=== PATIENT | male | born 1995 ===

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

== ENCOUNTER 2017-05-03 21:56 | Emergency (ER) | payer MEDICAID ==
[2017-05-03 22:11] VITALS: BP 132/80; PULSE 79; RESP 20; TEMP 98.2; O2SAT 97
--- NOTE | 2017-05-03 22:20 | ED PDOC ---
HPI: Head Injury Time Seen by Provider: 05/03/17 22:20 Chief Complaint (Nursing): Trauma Chief Complaint (Provider): head/neck pain History Per: Patient Additional Complaint(s): 21-year-old male resents with headache and neck pain status post jumping on a trampoline and landing on his neck. Patient did not sustain loss of consciousness. Injury occurred at 5:30 PM. No meds taken for pain relief prior to arrival. Patient denies any vision changes or dizziness, he rates headache as a 4 out of 10 and rates neck pain as a 7/10. He has slight nausea but denies any vomiting. Patient has been able to eat and drink since time of injury PMD: Patricia Onofre MD Past Medical History Reviewed: Historical Data, Nursing Documentation, Vital Signs Vital Signs: Last Vital Signs Temp 98.2 F 05/03/17 22:08 Pulse 79 05/03/17 22:08 Resp 20 05/03/17 22:08 BP 132/80 05/03/17 22:08 Pulse Ox 97 05/03/17 22:08 - Medical History PMH: No Chronic Diseases - Surgical History Surgical History: No Surg Hx - Family History Family History: States: No Known Family Hx - Living Arrangements Living Arrangements: With Family - Social History Current smoker - smoking cessation education provided: No Alcohol: None Drugs: Denies - Home Medications Home Medications: Ambulatory Orders Medication Instructions Recorded Amoxicillin/Clavulanate [Augmentin 1 tab PO BID 10 Days tab 11/27/16 875 MG-125 MG] Ondansetron [Zofran Odt] 4 mg PO TID PRN #12 odt 11/27/16 Acetaminophen [Tylenol 325mg tab] 650 mg PO Q4 PRN #1 bottle 05/03/17 Cyclobenzaprine [Cyclobenzaprine 10 mg PO TID PRN #15 tab 05/03/17 HCl] - Allergies Allergies/Adverse Reactions: Allergies Allergy/AdvReac Type Severity Reaction Status Date / Time No Known Allergies Allergy Verified 10/05/14 08:04 Review of Systems ROS Statement: Except As Marked, All Systems Reviewed And Found Negative Musculoskeletal: Positive for: Neck Pain Neurological: Positive for: Other (head injury with no LOC) Physical Exam - Reviewed Nursing Documentation Reviewed: Yes Vital Signs Reviewed: Yes - Physical Exam Appears: Positive for: Well, Non-toxic, No Acute Distress Skin: Negative for: Rash Eye Exam: Positive for: Normal appearance Neck: Positive for: Pain On Movement Of Neck (tenderness to bilateral paraspinal regions along cervical spine, no step off or palpable bony deformity) Cardiovascular/Chest: Positive for: Regular Rate, Rhythm Respiratory: Positive for: Normal Breath Sounds Extremity: Positive for: Normal ROM Neurologic/Psych: Positive for: Alert, Oriented - ECG O2 Sat by Pulse Oximetry: 97 Pulse Ox Interpretation: Normal - Other Rad C spine x-ray X-Ray: Interpreted by Me, Viewed By Me X-Ray Interpretation: no fx, no dis Medical Decision Making Medical Decision Makin21 year old with head and neck injury Patient did not sustain LOC, denies any dizziness or vision changes. Plan: C-spine x-ray PO tylenol Patient is aware of x-ray results. Patient states Tylenol did help with pain. Rx for tylenol and flexeril given. Advised follow-up with primary doctor on Friday. Disposition - Clinical Impression Clinical Impression: Cervical sprain, Minor head injury without loss of consciousness - Patient ED Disposition Is Patient to be Admitted: No Counseled Patient/Family Regarding: Studies Performed, Diagnosis, Need For Followup, Rx Given - Disposition Referrals: Patricia Tate MD [Non-Staff] - Disposition: Routine/Home Disposition Time: 22:37 Condition: STABLE Additional Instructions: Take rx meds as directed. Rest and avoid heavy lifting. Follow up with primary care doctor in 1-2 days. Prescriptions: Acetaminophen [Tylenol 325mg tab] 650 mg PO Q4 PRN #1 bottle PRN Reason: Fever >100.4 F Cyclobenzaprine [Cyclobenzaprine HCl] 10 mg PO TID PRN #15 tab PRN Reason: Muscle Pain Instructions: Cervical Strain (DC), Head Injury (ED) Forms: [employer] ([place]ien)
--- NOTE | 2017-05-04 09:18 | RAD ---
PROCEDURE: Cervical Spine Radiographs. HISTORY: Pain. COMPARISON: None. FINDINGS: BONES: Alignment maintained. No fracture. Dens Intact. DISC SPACES: Normal. SOFT TISSUES: Normal. No prevertebral soft tissue swelling. OTHER FINDINGS: None. IMPRESSION: Normal cervical spine radiographs
== END 2017-05-03 22:58 | disposition home or self-care (01) ==
LOC: H.ER 21:56
DX: S09.90XA Unspecified injury of head, initial encounter (principal); S13.4XXA Sprain of ligaments of cervical spine, initial encounter; Y93.44 Activity, trampolining; Y92.89 Other specified places as the place of occurrence of the external cause

== ENCOUNTER 2017-07-17 18:52 | Emergency (ER) | payer MEDICAID ==
[2017-07-17 19:25] VITALS: BP 132/79; PULSE 62; RESP 16; TEMP 98.6; O2SAT 100
--- NOTE | 2017-07-17 20:06 | ED PDOC ---
HPI: Headache Time Seen by Provider: 07/17/17 19:40 Chief Complaint (Nursing): Abdominal Pain History Per: Patient History/Exam Limitations: no limitations Onset/Duration Of Symptoms: Days Current Symptoms Are (Timing): Gone Now Associated Symptoms: Photophobia, Nausea, Vomiting Additional Complaint(s): No PMHx p/w GONCALVES since Friday, resolving. States that on Friday he woke up with a aching occipital headache and photophobia assoc. w/ nausea and few episodes of vomiting, states that headache is nt maximal at onset, gradual onset, non- thunderclap, states that Friday he also had nausea and vomiting with mild GONCALVES. States that today he feels nauseated but only mild headache, was scared of vomiting again so he came to the ER for further eval. No neck pain/stiffness, no fevers. Past Medical History Reviewed: Historical Data, Nursing Documentation Vital Signs: Last Vital Signs Temp 98.6 F 07/17/17 19:24 Pulse 62 07/17/17 19:24 Resp 16 07/17/17 19:24 BP 132/79 07/17/17 19:24 Pulse Ox 100 07/17/17 19:24 - Medical History PMH: No Chronic Diseases - Family History Family History: States: Unknown Family Hx - Immunization History Hx Tetanus Toxoid Vaccination: No Hx Influenza Vaccination: No Hx Pneumococcal Vaccination: No - Home Medications Home Medications: Ambulatory Orders Medication Instructions Recorded Amoxicillin/Clavulanate [Augmentin 1 tab PO BID 10 Days tab 11/27/16 875 MG-125 MG] Ondansetron [Zofran Odt] 4 mg PO TID PRN #12 odt 11/27/16 Acetaminophen [Tylenol 325mg tab] 650 mg PO Q4 PRN #1 bottle 05/03/17 Cyclobenzaprine [Cyclobenzaprine 10 mg PO TID PRN #15 tab 05/03/17 HCl] Aspirin/Acetaminophen/Caffeine 1 each PO Q12 PRN #30 tablet 07/17/17 [Excedrin Migraine Geltab] - Allergies Allergies/Adverse Reactions: Allergies Allergy/AdvReac Type Severity Reaction Status Date / Time No Known Allergies Allergy Verified 10/05/14 08:04 Review of Systems ROS Statement: Except As Marked, All Systems Reviewed And Found Negative Gastrointestinal: Positive for: Nausea, Vomiting Neurological: Positive for: Headache Physical Exam - Reviewed Nursing Documentation Reviewed: Yes Vital Signs Reviewed: Yes - Physical Exam Appears: Positive for: Well, Non-toxic, No Acute Distress Head Exam: Positive for: ATRAUMATIC, NORMAL INSPECTION, NORMOCEPHALIC Skin: Positive for: Normal Color, Warm, DRY Eye Exam: Positive for: EOMI, Normal appearance, PERRL ENT: Positive for: Normal ENT Inspection Neck: Positive for: Normal, Painless ROM Cardiovascular/Chest: Positive for: Regular Rate, Rhythm Respiratory: Positive for: CNT, Normal Breath Sounds Gastrointestinal/Abdominal: Positive for: Normal Exam, Soft Back: Positive for: Normal Inspection Extremity: Positive for: Normal ROM Neurologic/Psych: Positive for: 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 Negative for: Motor/Sensory Deficits, Cerebellar Tests, Gait, Aphasia, Facial Droop - ECG O2 Sat by Pulse Oximetry: 100 Pulse Ox Interpretation: Normal Medical Decision Making Medical Decision Making: A/P: No PMHx p/w resolving GONCALVES and nausea -Patient is well appearing, tolerating PO, normal vitals -Explained his symptoms are likely migraine related -Advised patient to followup with PMD tomorrow and neurology as warranted -Patient stable for outpatient followup, no need for imaging/intervention at this time -Will give zofran/NSAID as patient has not taken any medication for condition -Return precautions given Disposition - Clinical Impression Clinical Impression: Migraine - Patient ED Disposition Is Patient to be Admitted: No - Disposition Referrals: Provider CASTILLO, [Primary Care Provider] - Disposition: Routine/Home Disposition Time: 20:08 Condition: GOOD Prescriptions: Aspirin/Acetaminophen/Caffeine [Excedrin Migraine Geltab] 1 each PO Q12 PRN #30 tablet PRN Reason: Headache Instructions: Migraine Headaches in Adults
[2017-07-17] MEDS ORDERED: Naproxen 500 MG TAB PO STA (20:23)
== END 2017-07-17 20:35 | disposition home or self-care (01) ==
LOC: H.ER 18:52 → SUPCPDRO 18:52 → H.ER 20:35
DX: G43.909 Migraine, unspecified, not intractable, without status migrainosus (principal)

== ENCOUNTER 2017-08-29 09:33 | Emergency (ER) | payer MEDICAID ==
[2017-08-29 09:46] VITALS: TEMP 98.4; O2SAT 99
[2017-08-29 09:47] VITALS: BMI 19.8
--- NOTE | 2017-08-29 10:19 | ED PDOC ---
HPI: CCC, URI, Sore Throat Time Seen by Provider: 08/29/17 10:03 Chief Complaint (Nursing): ENT Problem Chief Complaint (Provider): difficulty swallowing History Per: Patient Have you had recent travel within the past 21 days to any of the following countries: [place], [place], [place] or [place]?: No Onset/Duration Of Symptoms: Days (eight), Waxing/Waning Current Symptoms Are (Timing): Still Present Associated Symptoms: denies: Fever, Chills, Sore Throat, Cough, Sputum, Neck Pain, Nasal Congestion, Nausea, Vomiting, Diarrhea Severity: Mild Additional Complaint(s): Pt presents to the ED with symptoms over eight days of an "odd" feeling when swallowing. Pt has seen his PMD for these symptoms and the PMD prescribed sulcrafate, omeprazole and referral to a GI specialist. Pt has a confirmed appointment with a GI specialist on , September 04. Pt is in no distress, presents with no nausea, vomiting or diarrhea, fever, myalgia or other difficulty Past Medical History Reviewed: Historical Data, Nursing Documentation, Vital Signs Vital Signs: Last Vital Signs Temp 98.4 F 08/29/17 09:46 Pulse 85 08/29/17 09:46 Resp 16 08/29/17 09:46 BP 116/75 08/29/17 09:46 Pulse Ox 99 08/29/17 10:54 - Family History Family History: States: Unknown Family Hx - Immunization History Hx Tetanus Toxoid Vaccination: No Hx Influenza Vaccination: No Hx Pneumococcal Vaccination: No - Home Medications Home Medications: Ambulatory Orders Medication Instructions Recorded Amoxicillin/Clavulanate [Augmentin 1 tab PO BID 10 Days tab 11/27/16 875 MG-125 MG] Ondansetron [Zofran Odt] 4 mg PO TID PRN #12 odt 11/27/16 Acetaminophen [Tylenol 325mg tab] 650 mg PO Q4 PRN #1 bottle 05/03/17 Cyclobenzaprine [Cyclobenzaprine 10 mg PO TID PRN #15 tab 05/03/17 HCl] Aspirin/Acetaminophen/Caffeine 1 each PO Q12 PRN #30 tablet 07/17/17 [Excedrin Migraine Geltab] Ondansetron [Zofran] 4 mg PO Q8H #12 tab 04/12/18 Famotidine [Pepcid] 20 mg PO BID #28 tab 08/29/17 - Allergies Allergies/Adverse Reactions: Allergies Allergy/AdvReac Type Severity Reaction Status Date / Time No Known Allergies Allergy Verified 08/29/17 10:04 Review of Systems ROS Statement: Except As Marked, All Systems Reviewed And Found Negative Constitutional: Negative for: Fever, Chills, Sweats, Weakness ENT: Negative for: Ear Pain, Nose Pain, Mouth Pain, Mouth Swelling, Throat Pain , Throat Swelling Gastrointestinal: Negative for: Nausea, Vomiting, Abdominal Pain, Diarrhea, Constipation Skin: Negative for: Rash Neurological: Negative for: Weakness, Change in Speech Physical Exam - Reviewed Nursing Documentation Reviewed: Yes Vital Signs Reviewed: Yes - Physical Exam Appears: Positive for: Well, Non-toxic, No Acute Distress. Negative for: Uncomfortable Head Exam: Positive for: ATRAUMATIC, NORMAL INSPECTION, NORMOCEPHALIC Skin: Positive for: Normal Color, Warm, Dry ENT: Positive for: Normal ENT Inspection, Pharynx Is (non-erythematous with mild clear drainage at the posterior renate-pharynx; there is no tonsillar exudate or uvular edema; ). Negative for: Nasal Congestion, Pharyngeal Erythema, Tonsillar Exudate, Tonsillar Swelling Neck: Positive for: Normal, Painless ROM, Supple. Negative for: Decreased ROM Cardiovascular/Chest: Positive for: Regular Rate, Rhythm, Chest Non Tender. Negative for: Edema, Gallop, Bradycardia, Tachycardia, Friction Rub Respiratory: Positive for: Normal Breath Sounds. Negative for: Decreased Breath Sounds, Accessory Muscle Use, Crackles, Rales, Rhonchi, Stridor, Wheezing , Respiratory Distress Pulses-Carotid (L): 2+ Pulses-Carotid (R): 2+ Pulses-Radial (L): 2+ Pulses-Radial (R): 2+ Gastrointestinal/Abdominal: Positive for: Normal Exam, Bowel Sounds (active in all four quadrants; ), Soft. Negative for: Tenderness, Organomegaly, Distended , Guarding, Rebound, Asicites Lymphatic: Positive for: Normal Exam. Negative for: Adenopathy - ECG O2 Sat by Pulse Oximetry: 99 Medical Decision Making Medical Decision Making: pt will be seen by GI specialist on 09/04 in a confirmed appointment ED tx pepcid PO and PO challenge pt stable for discharge and outpatient follow-up/tx as scheduled return to ED precautions/instructions provided Disposition - Clinical Impression Clinical Impression: Reflux gastritis - Patient ED Disposition Is Patient to be Admitted: No Doctor Will See Patient In The: Office Counseled Patient/Family Regarding: Diagnosis, Need For Followup, Rx Given - Disposition Disposition: Routine/Home Disposition Time: 10:40 Condition: GOOD Additional Instructions: Pt will follow up with PMD as necessary Pt will continue medications as prescribed Pt will follow up with GI Specialist as scheduled Prescriptions: Famotidine [Pepcid] 20 mg PO BID #28 tab Instructions: Gastritis (DC)
[2017-08-29 11:30] VITALS: BP 118/70; PULSE 84; RESP 18
== END 2017-08-29 11:31 | disposition home or self-care (01) ==
LOC: H.ER 09:33
DX: K29.60 Other gastritis without bleeding (principal); R13.10 Dysphagia, unspecified

== ENCOUNTER 2018-01-27 09:27 | Emergency (ER) | payer MEDICAID ==
[2018-01-27 09:27] VITALS: BMI 19.8
[2018-01-27 09:31] VITALS: RESP 18; TEMP 98.6; O2SAT 99
[2018-01-27] MEDS ORDERED: Sodium Chloride 0.9% 1,000 ML IV STA (10:00)
--- NOTE | 2018-01-27 10:05 | ED PDOC ---
HPI: Abdomen Time Seen by Provider: 01/27/18 09:53 Chief Complaint (Nursing): Abdominal Pain Chief Complaint (Provider): Abdominal Pain History Per: Patient History/Exam Limitations: no limitations Onset/Duration Of Symptoms: Days (x2) Location Of Pain/Discomfort: LUQ, Other (Left flank) Associated Symptoms: Nausea. denies: Fever, Vomiting, Diarrhea, Urinary Symptoms Additional Complaint(s): 22 years old male presents to ER for evaluation of left flank pain associated with nausea onset 2 days. Patient denies vomiting, fever, diarrhea, bloody stools or any urinary symptoms. PMD: non provided Past Medical History Reviewed: Historical Data, Nursing Documentation, Vital Signs Vital Signs: Last Vital Signs Temp 98.6 F 01/27/18 09:31 Pulse 60 01/27/18 09:31 Resp 18 01/27/18 09:31 BP 106/69 01/27/18 09:31 Pulse Ox 99 01/27/18 09:31 - Medical History PMH: No Chronic Diseases - Surgical History Surgical History: No Surg Hx - Family History Family History: States: Unknown Family Hx - Social History Current smoker - smoking cessation education provided: No Alcohol: None Drugs: Cannabis (Marijuana) - Immunization History Hx Tetanus Toxoid Vaccination: No Hx Influenza Vaccination: No Hx Pneumococcal Vaccination: No - Home Medications Home Medications: Ambulatory Orders Medication Instructions Recorded Amoxicillin/Clavulanate [Augmentin 1 tab PO BID 10 Days tab 11/27/16 875 MG-125 MG] Ondansetron [Zofran Odt] 4 mg PO TID PRN #12 odt 11/27/16 Acetaminophen [Tylenol 325mg tab] 650 mg PO Q4 PRN #1 bottle 05/03/17 Cyclobenzaprine [Cyclobenzaprine 10 mg PO TID PRN #15 tab 05/03/17 HCl] Aspirin/Acetaminophen/Caffeine 1 each PO Q12 PRN #30 tablet 07/17/17 [Excedrin Migraine Geltab] Ondansetron [Zofran] 4 mg PO Q8H #12 tab 07/17/17 Famotidine [Pepcid] 20 mg PO BID #28 tab 08/29/17 Famotidine [Pepcid] 20 mg PO Q12 #20 tab 01/27/18 - Allergies Allergies/Adverse Reactions: Allergies Allergy/AdvReac Type Severity Reaction Status Date / Time No Known Allergies Allergy Verified 01/27/18 09:51 Review of Systems ROS Statement: Except As Marked, All Systems Reviewed And Found Negative Constitutional: Negative for: Fever Gastrointestinal: Positive for: Nausea. Negative for: Vomiting, Diarrhea Genitourinary Male: Negative for: Dysuria, Hematuria Physical Exam - Reviewed Nursing Documentation Reviewed: Yes Vital Signs Reviewed: Yes - Physical Exam Appears: Positive for: Non-toxic, No Acute Distress Head Exam: Positive for: ATRAUMATIC, NORMOCEPHALIC Skin: Positive for: Normal Color, Warm, Dry Gastrointestinal/Abdominal: Positive for: Soft, Tenderness (LUQ) Back: Positive for: Other (Left flank tenderness). Negative for: L CVA Tenderness, R CVA Tenderness Neurologic/Psych: Positive for: Alert, Oriented (x3) - Laboratory Results Result Diagrams: 01/27/18 10:42 01/27/18 10:42 - ECG O2 Sat by Pulse Oximetry: 99 (RA) Pulse Ox Interpretation: Normal Medical Decision Making Medical Decision Making: Time: 958 Initial Plan: --CMP --Urine dipstick --CBC --Sodium Chloride 0.9% 1000 ml IV 100 mls/hr --Toradol 30 mg IVP --Zofran 4 mg IVP Scribe Attestation: Documented by Tiana Suarez, acting as a scribe for Homero Maciel MD. Provider Scribe Attestation: All medical record entries made by the Scribe were at my direction and personally dictated by me. I have reviewed the chart and agree that the record accurately reflects my personal performance of the history, physical exam, medical decision making, and the department course for this patient. I have also personally directed, reviewed, and agree with the discharge instructions and disposition. Disposition - Clinical Impression Clinical Impression: Abdominal pain - Patient ED Disposition Is Patient to be Admitted: No Counseled Patient/Family Regarding: Studies Performed, Diagnosis, Need For Followup, Rx Given - Disposition Referrals: [facility] [Outside] Disposition: Routine/Home Disposition Time: 12:16 Condition: FAIR Prescriptions: Famotidine [Pepcid] 20 mg PO Q12 #20 tab Instructions: Gastritis Forms: [facility] (Irish)
[2018-01-27 10:54] LABS: BASO % 0.7 % (0.0-2.0); EOS # 0.2 K/uL (0.0-0.7); EOS % 4.4 % (0.0-4.0); HEMOGLOBIN 14.2 g/dL (12.0-18.0); LYMPH # 2.1 K/uL (1.0-4.3); MEAN CELL VOLUME 91.7 fl (80.0-94.0); MEAN CORPUSCULAR HEMOGLOBIN 30.7 pg (27.0-31.0); MEAN CORPUSCULAR HGB CONC 33.5 g/dL (33.0-37.0); MEAN PLATELET VOLUME 9.1 fl (7.2-11.7); MONO # 0.3 K/uL (0.0-0.8); MONO % 7.8 % (0.0-10.0); NEUT # 1.8 K/uL (1.8-7.0); NEUT % 40.1 % (50.0-75.0); NRBC % 0.1 % (0.0-0.0); RBC 4.63 Mil/uL (4.40-5.90); RED CELL DISTRIBUTION WIDTH 12.3 % (11.5-14.5); WHITE BLOOD COUNT 4.4 K/uL (4.8-10.8)
[2018-01-27 10:58] LABS: ALB/GLOB RATIO 1.1 (1.0-2.1); ALBUMIN 4.4 g/dL (3.5-5.0); ALT/SGPT 28 U/L (21-72); AST/SGOT 27 U/L (17-59); BLOOD UREA NITROGEN 17 mg/dl (9-20); CALCIUM 9.6 mg/dL (8.4-10.2); GFR NON-AFRICAN AMERICAN > 60
[2018-01-27 12:31] VITALS: BP 107/69; PULSE 55
== END 2018-01-27 12:30 | disposition home or self-care (01) ==
LOC: H.ER 09:27
DX: R10.12 Left upper quadrant pain (principal)
CPT/HCPCS: 80053; 85025; 96374; 96375; 99284; J1885; J2405; J7030